=== PATIENT | male | born 1955 | race Caucasian/White ===

== ENCOUNTER 2023-05-05 14:50 | Emergency (ER) | payer SELFPAY ==
[~2023-05-05] VITALS: Ht 180.3 cm; Wt 85.0 kg
[2023-05-05 14:50] VITALS: BP 84/58; PULSE 78; RESP 16; O2SAT 96
[~2023-05-05 14:50] MED LIST: AMLO1TAB22 PO; ASPI1TAB20 PO; ATOR40TA52 PO; LISI10TA34 PO; LISI2.5T47 PO; LISI20TA56 PO
== END 2023-05-05 14:58 | disposition left against medical advice (07) ==
LOC: ER 14:50 → EDBD 14:50 → ER 14:52
DX: R55 Syncope and collapse (principal); Z53.21 Procedure and treatment not carried out due to patient leaving prior to being seen by health care provider
CPT/HCPCS: 93005

== ENCOUNTER 2023-05-05 16:27 | Inpatient (IN) | payer OTHER, MEDICAID ==
[~2023-05-05] VITALS: Ht 182.9 cm; Wt 74.3 kg
[2023-05-05] MEDS ORDERED: SODIUM CHLORIDE 0.9% 2,000 ML IV ONE (17:15)
[2023-05-05 18:09] LABS: Basophils # (auto) 0 10 ^3/uL (0-0.2); Basophils % (auto) 0.4 % (0.0-2.0); Eosinophils # (auto) 0 10 ^3/uL (0-0.8); Eosinophils % (auto) 0.4 % (0.0-7.0); Hematocrit 33.6 % (41.0-53.0); Hemoglobin 11.3 g/dL (13.5-17.5); Lymphocytes # (auto) 0.6 10 ^3/uL (0.4-5.4); Lymphocytes % (auto) 5.7 % (10.0-50.0); Mean Corpuscular Hemoglobin 38.2 pg (28.0-32.0); Mean Corpuscular Hgb Conc. 33.8 g/dL (32.0-36.0); Mean Corpuscular Volume 113.1 fL (80.0-100.0); Monocytes # (auto) 0.6 10 ^3/uL (0-1.3); Monocytes % (auto) 5.7 % (0.0-12.0); Neutrophils # (auto) 9.4 10 ^3/uL (1.6-8.6); Neutrophils % (auto) 87.8 % (37.0-80.0); Nucleated Red Blood Cells % 0.1 %; Red Blood Cells 2.97 10^6/uL (4.5-5.90); White Blood Cell 10.7 10^3/uL (4.4-10.8)
[2023-05-05 18:13] LABS: Red Cell Distribution Width 20.8 % (11.8-14.3)
[2023-05-05 18:17] LABS: Alanine Aminotransferase 17 U/L (7-40); Alkaline Phosphatase 75 U/L (46-116); Anion Gap 12 (5-15); Aspartate Aminotransferase 21 U/L (13-40); BUN/Creatinine Ratio 12.2 (10.0-20.0); Bilirubin, Total 0.3 mg/dL (0.2-1.0); Blood Urea Nitrogen 17 mg/dL (9-23); Calcium 9.3 mg/dL (8.5-10.1); Carbon Dioxide 21 mmol/L (20-30); Chloride 103 mmol/L (98-107); Glucose 156 mg/dL (74-106); Potassium 4.3 mmol/L (3.5-5.1); Sodium 136 mmol/L (136-145)
[2023-05-05 18:18] LABS: Total Protein 6.2 g/dL (5.7-8.2)
[2023-05-05 18:25] LABS: Lactic Acid w/Reflex 3.9 mmol/L (0.4-2.0)
[2023-05-05 18:26] LABS: INR 1.04 (0.9-1.15); Partial Thromboplastin Time 21.7 SEC (24.5-34.5); Prothrombin Time 10.9 sec (9.3-11.8)
[2023-05-05 18:45] VITALS: PULSE 94; RESP 18; O2SAT 100
[2023-05-05 18:57] LABS: Magnesium 1.9 mg/dL (1.6-2.6)
[2023-05-05] MEDS ORDERED: SODIUM CHLORIDE 0.9% 1,000 ML IV ONE ×2 (19:15→23:15)
[2023-05-05 20:10] VITALS: PULSE 90; RESP 15; O2SAT 90
[2023-05-05] MEDS ORDERED: PIPERACILLIN-TAZOB 3.375GM 100 ML IV ONE (20:30)
[2023-05-05] MEDS ORDERED: NICOTINE 7MG/24HR TOPICAL PATCH TD ONE (21:45)
[2023-05-05] MEDS ORDERED: ACETAMINOPHEN 325 MG TAB PO PRN (23:15)
[2023-05-05] MEDS ORDERED: ONDANSETRON HCL 4 MG/2 ML VIAL IV PRN (23:15)
[2023-05-06] VITALS (7 sets, daily range): BP systolic 88–130; BP diastolic 53–72; PULSE 60–99; RESP 15–18; TEMP 97.5–98.4; O2SAT 95–99
[2023-05-06 01:17] LABS: Urine Bacteria NONE SEEN /hpf (None Seen); Urine Blood Negative /uL (Negative); Urine Clarity Clear (Clear); Urine Color Yellow (Yellow); Urine Protein, UAD Negative (Negative); Urine Specific Gravity 1.012 (1.001-1.035); Urine WBC 3 /hpf (0 - 3)
[2023-05-06] MEDS ORDERED: POLYETHYLENE GLYCOL 17 GM PWDR PO PRN (04:45)
[2023-05-06 05:40] LABS: Basophils # (auto) 0 10 ^3/uL (0-0.2); Basophils % (auto) 0.3 % (0.0-2.0); Eosinophils # (auto) 0.1 10 ^3/uL (0-0.8); Hemoglobin 8.8 g/dL (13.5-17.5); Lymphocytes # (auto) 0.5 10 ^3/uL (0.4-5.4); Monocytes # (auto) 0.7 10 ^3/uL (0-1.3)
[2023-05-06 05:41] LABS: Anion Gap 3 (5-15); Carbon Dioxide 24 mmol/L (20-30); Chloride 111 mmol/L (98-107); Sodium 138 mmol/L (136-145)
[2023-05-06 05:42] LABS: Calcium 7.9 mg/dL (8.7-10.4); Hematocrit 25.1 % (41.0-53.0); Lymphocytes % (auto) 5.6 % (10.0-50.0); Mean Corpuscular Volume 111.3 fL (80.0-100.0); Monocytes % (auto) 8.9 % (0.0-12.0); Neutrophils # (auto) 6.9 10 ^3/uL (1.6-8.6); Neutrophils % (auto) 84.2 % (37.0-80.0); Red Blood Cells 2.25 10^6/uL (4.5-5.90); White Blood Cell 8.2 10^3/uL (4.4-10.8)
[2023-05-06 05:47] LABS: BUN/Creatinine Ratio 10.5 (10.0-20.0); Blood Urea Nitrogen 11 mg/dL (9-23); Glucose 84 mg/dL (74-106)
[2023-05-06 06:08] LABS: Red Cell Distribution Width 20.5 % (11.8-14.3)
[2023-05-06] MEDS: SENNA 8.6 MG TAB PO SCH ×2 (09:55→22:08)
[2023-05-06] MEDS ORDERED: FAMOTIDINE 20 MG TAB PO SCH (10:00)
[2023-05-06] MEDS ORDERED: IOHEXOL 350 MG/ML 100ML IJ ONE (12:29)
[2023-05-06] MEDS: SODIUM CHLORIDE 0.9% 1,000 ML IV SCH (12:30)
[2023-05-06 13:06] LABS: % Iron Saturation 14.8 % (20-55)
[2023-05-06] MEDS: FERROUS SULFATE 300 MG/5 ML ORAL LIQ PO SCH (17:14)
[2023-05-06] MEDS: MIDODRINE HCL 10 MG TAB PO SCH (17:15)
[2023-05-07] VITALS (12 sets, daily range): BP systolic 94–137; BP diastolic 51–72; PULSE 59–94; RESP 16–18; TEMP 97.9–98.7; O2SAT 93–98
[2023-05-07] MEDS: SODIUM CHLORIDE 0.9% 1,000 ML IV SCH ×2 (02:30→08:30)
[2023-05-07 06:18] LABS: Chloride 110 mmol/L (98-107); Sodium 138 mmol/L (136-145)
[2023-05-07 06:19] LABS: Anion Gap 5 (5-15); Carbon Dioxide 23 mmol/L (20-30)
[2023-05-07 06:24] LABS: BUN/Creatinine Ratio 8.7 (10.0-20.0); Blood Urea Nitrogen 8 mg/dL (9-23); Glucose 75 mg/dL (74-106)
[2023-05-07] MEDS: MIDODRINE HCL 10 MG TAB PO SCH ×2 (06:28→14:21)
[2023-05-07 06:56] LABS: Basophils # (auto) 0 10 ^3/uL (0-0.2); Eosinophils # (auto) 0.2 10 ^3/uL (0-0.8); Hemoglobin 8.3 g/dL (13.5-17.5); Lymphocytes # (auto) 0.4 10 ^3/uL (0.4-5.4); Mean Corpuscular Hgb Conc. 34.5 g/dL (32.0-36.0); Mean Corpuscular Volume 112.1 fL (80.0-100.0); Monocytes # (auto) 0.5 10 ^3/uL (0-1.3); Neutrophils # (auto) 4.1 10 ^3/uL (1.6-8.6); White Blood Cell 5.2 10^3/uL (4.4-10.8)
[2023-05-07 06:59] LABS: Basophils % (auto) 0.7 % (0.0-2.0); Eosinophils % (auto) 3.7 % (0.0-7.0); Lymphocytes % (auto) 7.8 % (10.0-50.0); Mean Corpuscular Hemoglobin 38.7 pg (28.0-32.0); Monocytes % (auto) 9.9 % (0.0-12.0); Neutrophils % (auto) 77.9 % (37.0-80.0); Nucleated Red Blood Cells % 0.2 %; Red Blood Cells 2.15 10^6/uL (4.5-5.90); Red Cell Distribution Width 20.5 % (11.8-14.3)
[2023-05-07] MEDS: FERROUS SULFATE 300 MG/5 ML ORAL LIQ PO SCH (09:18)
[2023-05-07] MEDS: SENNA 8.6 MG TAB PO SCH (09:20)
[2023-05-07] MEDS ORDERED: NICOTINE 14 MG/24HR TOPICAL PATCH TD SCH (10:00)
[2023-05-07] MEDS ORDERED: MID10T PO (16:33)
== END 2023-05-07 18:10 | disposition home or self-care (01) | DRG 312 ==
LOC: ER 16:27 → TELE 23:16 → TELE-EAST 05-06 07:59
PROVIDERS: ADMIT Hospitalist; ATTEND Hospitalist
DX: I95.1 Orthostatic hypotension (principal); E86.0 Dehydration; I10 Essential (primary) hypertension; F17.210 Nicotine dependence, cigarettes, uncomplicated; Z86.73 Personal history of transient ischemic attack (TIA), and cerebral infarction without residual deficits; Z90.49 Acquired absence of other specified parts of digestive tract
CPT/HCPCS: 36415; 70450; 71045; 71275; 80048; 80053; 81001; 82270; 83540; 83550; 83605; 83735; 84443; 84484; 85025; 85610; 85730; 86850; 86900; 86901; 87040; 93005; 93306; 99291; G0378; J2543

== ENCOUNTER 2025-03-03 08:49 | Inpatient (IN) | payer MEDICARE, MEDICAID ==
[~2025-03-03] VITALS: Ht 182.9 cm; Wt 79.5 kg
[~2025-03-03 08:49] MED LIST changes: -LISI10TA34 PO; -LISI2.5T47 PO; +MID10T PO; +PRIM50TA5 PO
--- NOTE | 2025-03-03 09:22 | ECG ---
[facility] Test Date: 2025-03-03 Test Time: 09:05:59 Pat Name: SWETA PAZ Department: [facility] ED Patient ID: [id number] Room: 0281T Gender: M Auto Damage Estimator: ROBIN : 1955 Requested By: JASMIN BECERRA Order Number: [id number] Reading MD: Markus Allen Measurements Intervals [place] Rate: 75 P: 78 [place]: 202 QRS: 42 QRSD: 110 T: 66 QT: 399 QTc: 446 Interpretive Statements Sinus rhythm Anteroseptal infarct, age indeterminate Electronically Signed On 03-04-2025 15:14:49 PDT by Markus Allen Please click the below link to view image of tracing.
[2025-03-03 09:38] VITALS: PULSE 64; RESP 16; O2SAT 96
[2025-03-03] MEDS: SODIUM CHLORIDE 0.9% 1,000 ML IV ONE (09:38)
--- NOTE | 2025-03-03 09:42 | ED.PDOC ---
Altered Mental Status HPI Comments This is a 69 year-old male, with a PMHx of Hypotension, who presents to the ED via EMS with a chief complaint of syncopal episode today. Patient reports last syncopal episode was 05/05/23 after undergoing chemotherapy and radiation for Lymphoid Cancer. Patient states he has not been undergoing chemo or radiation as he no longer has cancer. Patient has no further complaints at this time and otherwise denies further associated symptoms of dizziness, headache, blurred vision, N/V/D, fever, or chills. Chief Complaint: Syncope Time Seen by MD: 09:19 Primary Care Provider: CLAYTON Reviewed Notes: Medications, Allergies Allergies: Coded Allergies: NO KNOWN ALLERGIES (Unverified , 04/23/15) Home Meds Active Scripts Midodrine HCl (Midodrine HCl) 10 Mg Tab, 10 MG PO TID, #120 TAB Prov:ANUJ ARMSTRONG MD 05/07/23 Reported Medications Amlodipine Besylate (Amlodipine Besylate) 5 Mg Tab, 1 TAB PO DAILY, #30 TAB 5 Refills 09/28/15 Atorvastatin Calcium (ATORVASTATIN CALCIUM) 40 Mg Tab, 1 TAB PO QPM, #90 TAB 3 Refills 09/28/15 Aspirin (Aspir-81) 81 Mg Tab, 1 TAB PO DAILY, #30 TAB 5 Refills 09/28/15 Information Source: Patient Mode of Arrival: EMS Severity: Moderate Associated Signs and Symptoms: Other (syncope ) Past Medical History PAST MEDICAL HISTORY: CVA, Gallstones, High Lipids, HTN Past Medical History (Other): Lymphoid Cancer Surgical History: Cholecystectomy Family History Family History: Unobtainable Social History Smoker: Cigarettes Alcohol: Occasionally Drugs: Denies Drug Use Lives In: Home Constitutional: denies: chills, diaphoresis, fatigue, fever, malaise, sweats, weakness, others EENTM: denies: blurred vision, double vision, ear bleeding, ear discharge, ear drainage, ear pain, ear ringing, eye pain, eye redness, hearing loss, mouth pain, mouth swelling, nasal discharge, nose bleeding, nose congestion, nose pain, photophobia, tearing, throat pain, throat swelling, voice changes, others Respiratory: denies: cough, hemoptysis, orthopnea, SOB at rest, shortness of breath, SOB with excertion, stridor, wheezing, others Cardiovascular: denies: chest pain, dizzy spells, diaphoresis, Dyspnea on exertion, edema, irregular heart beat, left arm pain, lightheadedness, palpitations, PND, syncope, others Gastrointestinal: denies: abdomen distended, abdominal pain, blood streaked bowels, constipated, diarrhea, dysphagia, difficulty swallowing, hematemesis, melena, nausea, poor appetite, poor fluid intake, rectal bleeding, rectal pain, vomiting, others Genitourinary: denies: burning, dysuria, flank pain, frequency, hematuria, incontinence, penile discharge, penile sore, pain, testicle pain, testicle swelling, urgency, others Neurological: reports: fainting; denies: dizziness, headache, left sided numbness, left sided weakness, numbness, paresthesia, pre-existing deficit, right sided numbness, right sided weakness, seizure, speech problems, tingling, tremors, weakness, others Musculoskeletal: denies: back pain, gout, joint pain, joint swelling, muscle pain, muscle stiffness, neck pain, others Integumetry: denies: bruises, change in color, change in hair/nails, dryness, laceration, lesions, lumps, rash, wounds, others Allergic/Immunocompromised: denies: Difficulty Healing, Frequent Infections, Hives, Itching, others Hematologic/Lymphatic: denies: anemia, blood clots, easy bleeding, easy bruising, swollen glands, others Endocrine: denies: excessive hunger, excessive sweating, excessive thirst, excessive urination, flushing, intolerance to cold, intolerance to heat, unexplained weight gain, unexplained weight loss, others Psychiatric: denies: anxiety, bipolar disorder, depression, hopeless, panic disorder, schizophrenia, sleepless, suicidal, others All Other Systems: Reviewed and Negative Physical Exam General Appearance: Moderate Distress HEENT: Normal ENT Inspection, Pharynx Normal, TMs Normal Neck: Full Range of Motion, Non-Tender, Normal, Normal Inspection Respiratory: Chest Non-Tender, Lungs Clear, No Accessory Muscle Use, No Respiratory Distress, Normal Breath Sounds Cardiovascular: No Edema, No JVD, No Murmur, No Gallop, Normal Peripheral Pulses, Regular Rate/Rhythm Breast Exam: Deferred Gastrointestinal: No Organomegaly, Non Tender, No Pulsatile Mass, Normal Bowel Sounds, Soft Genitalia: Deferred Pelvic: Deferred Rectal: Deferred Extremities: No calf tenderness, Normal capillary refill, Normal inspection, Normal range of motion, Non-tender, No pedal edema Musculoskeletal : Apperance: Normal Neurologic: Alert, trip motor operator II-XII nml as Tested, No Motor Deficits, Normal Affect, Normal Mood, No Sensory Deficits Cerebellar Function: NOT DONE Reflexes: NOT DONE Skin: Dry, Normal Color, Warm Peripheral Pulses: 3+ Radial (R), 3+ Radial (L) Lymphatic: No Adenopathy EKG EKG : Pulse Rate (adult): 75 [place]: Normal Cardiac Rhythm: NSR Block: None Hypertrophy: None ST: Normal Was a procedure done? Was a procedure done?: No Differential Diagnosis (ALOC) Differential Diagnosis: Dehydration, Hypoglycemia, Closed Head Injury X-Ray, Labs, Meds, VS Vital Signs Date Time Temp Pulse Resp B/P (MAP) Pulse Ox O2 Delivery O2 Flow Rate FiO2 03/03/25 09:42 75 03/03/25 09:38 64 16 96 Room Air* 0 21 03/03/25 09:17 97.5 79 26 105/56 (72) 90 97.5 03/03/25 09:14 82 03/03/25 09:05 75 03/03/25 08:58 98.2 82 18 120/89 96 98.2 Lab Test 03/03/25 09:30 03/03/25 09:05 Range/Units White Blood Count 5.7 4.4-10.8 10^3/uL Red Blood Count 3.90 L 4.5-5.90 10^6/uL Hemoglobin 13.1 L 13.5-17.5 g/dL Hematocrit 38.5 L 41.0-53.0 % Mean Corpuscular Volume 98.8 80.0-100.0 fL Mean Corpuscular Hemoglobin 33.6 H 28.0-32.0 pg Mean Corpuscular Hemoglobin Concent 34.0 32.0-36.0 g/dL Red Cell Distribution Width 13.7 11.8-14.3 % Platelet Count 182 140-450 10^3/uL Mean Platelet Volume 7.1 6.9-10.8 fL Neutrophils (%) (Auto) 76.1 37.0-80.0 % Lymphocytes (%) (Auto) 12.6 10.0-50.0 % Monocytes (%) (Auto) 9.7 0.0-12.0 % Eosinophils (%) (Auto) 1.2 0.0-7.0 % Basophils (%) (Auto) 0.4 0.0-2.0 % Neutrophils # (Auto) 4.3 1.6-8.6 10 ^3/uL Lymphocytes # (Auto) 0.7 0.4-5.4 10 ^3/uL Monocytes # (Auto) 0.6 0-1.3 10 ^3/uL Eosinophils # (Auto) 0.1 0-0.8 10 ^3/uL Basophils # (Auto) 0 0-0.2 10 ^3/uL Nucleated Red Blood Cells 0.0 % Sodium Level 134 L 136-145 mmol/L Potassium Level 3.6 3.5-5.1 mmol/L Chloride Level 103 98-107 mmol/L Carbon Dioxide Level 25 20-31 mmol/L Anion Gap 6 5-15 Blood Urea Nitrogen 9 9-23 mg/dL Creatinine 1.11 0.700-1.30 mg/dL Glomerular Filtration Rate Calc 73 >90 mL/min BUN/Creatinine Ratio 8.1 L 10.0-20.0 Serum Glucose 111 H 74-106 mg/dL Calcium Level 7.9 L 8.7-10.4 mg/dL Troponin I High Sensitivity 7 </=54 ng/L POC Glucose 124 H 70-106 mg/dl Current Medications Medications (Trade) Dose Ordered Sig/Camilo Route Start Time Stop Time Status Last Admin Sodium Chloride 1,000 ml @ 1,000 mls/hr Q1H ONCE IV 03/03/25 09:30 03/03/25 10:29 DC 03/03/25 09:38 [place] [id number] Ph: [phone] DIAGNOSTIC IMAGING Diagnostic Imaging Report : [id number] Signed PATIENT: SWETA PAZ ACCT: [id number] UNIT: [id number] : 1955 LOC: ER ROOM / BED: / AGE / SEX: 69 / M ADM STATUS: REG ER SERVICE 4 ORDERING PHYSICIAN: JASMIN BECERRA MD PROCEDURE(s): HWOCT - HEAD WITHOUT CONTRAST REASON: syncope ORDER NUMBER(s): [id number], ACCESSION NUMBER(s): [id number] EXAM: CT HEAD WITHOUT CONTRAST INDICATION: Syncope TECHNIQUE: CT of the head without intravenous contrast. Coronal and sagittal reformatted images are submitted. Radiation Dose : 1. Head: CT Dose: CTDI volume is 62.8 mGy. Dose-length product is 1129.8 mGy*cm The dose indicators for CT are the volume Computed Tomography (CT) Dose Index (CTDIvol) and the Dose Length Product (DLP), and are measured in units of mGy and mGy-cm, respectively. These indicators are not patient dose, but values generated from the CT scanner acquisition factors. The report includes radiation exposure data for exposures received during this examination. All CT scans at this medical facility are performed using dose modulation techniques as appropriate to a performed exam including the following: Automated exposure control was utilized; adjustment of the MA and/or KV according to patient size; and use of iterative reconstruction technique. COMPARISON: CT HEAD WITHOUT CONTRAST on DOS: 05/05/23 FINDINGS: There is no evidence of acute intracranial hemorrhage, extra-axial collection, mass effect, midline shift, herniation or hydrocephalus. The ventricles, sulci and cisterns are age appropriate. The monsalve-white differentiation is intact. There is mucosal thickening in the maxillary sinuses. The mastoid air cells are clear. No depressed calvarial fracture. The surrounding soft tissues are unremarkable. IMPRESSION: 1. No evidence of acute intracranial abnormality. Patient alert. Possibly had syncope. CT of the head reviewed does not show any acute changes. Establish intravenous access. Was given fluids pain Has a had chemo radiation therapy. Was told to follow up with his primary care physician. Was told to come back if there is any problem. Images Reviewed?: Images reviewed and evaluated by me Time of 1ST Reevaluation: 10:27 Reevaluation 1ST: Unchanged Patient Education/Counseling: Diagnosis, Treatment Family Education/Counseling: No Family Present SEPSIS Sepsis Screen Date sepsis recognized/suspect: Mar 03, 2025 Time Sepsis recognized/suspect: 908 Recent Procedure: No On Antibiotic Therapy: No Respiratory Rate >20: No Heart Rate >90: No Temp<36 C (96.8 F) or >38.3 C: No SBP <90 or MAP <65 mmHG: No New Acute Mental Status Change: No Is the patient on CPAP, BIPAP,: No Physician Orders Chrome Plater Helper (03/03/25 ) Head Without Contrast (03/03/25 09:25) Vital Signs Date Time Temp Pulse Resp B/P (MAP) Pulse Ox O2 Delivery O2 Flow Rate FiO2 03/03/25 09:42 75 03/03/25 09:38 64 16 96 Room Air* 0 21 03/03/25 09:17 97.5 79 26 105/56 (72) 90 97.5 03/03/25 09:14 82 03/03/25 09:05 75 03/03/25 08:58 98.2 82 18 120/89 96 98.2 Laboratory Tests Test 03/03/25 09:30 White Blood Count 5.7 10^3/uL (4.4-10.8) Medications Medications Dose Ordered Sig/Camilo Route Start Time Stop Time Status Last Admin Dose Admin Sodium Chloride 1,000 ml @ 1,000 mls/hr Q1H ONCE IV 03/03/25 09:30 03/03/25 10:29 DC 03/03/25 09:38 Departure 1 Departure Time of Disposition: 11:00 Impression: Primary Impression: Syncope and collapse Additional Impression: Premature ventricular contraction Disposition: ADMITTED INPATIENT Admit to: Med Surg Condition: Guarded Critical Care Note Critical Care Time?: Yes (45 min-critical care time only) Stability Stability form required: No Heart Score Heart Score: Heart Score Response (Comments) Value History Slightly Suspicious 0 EKG Normal 0 Age >65 2 Risk Factors 1 or 2 risk factors 1 Troponin N/A 0 Total 3 I personally scribed for JASMIN BECERRA MD ([email or web address]) on 03/03/25 at 09:42. Electronically submitted by Elo Hutson ([employer]). I personally scribed for JASMIN BECERRA MD ([email or web address]) on 03/03/25 at 09:43. Electronically submitted by Elo Hutson ([employer]). I personally scribed for JASMIN BECERRA MD ([email or web address]) on 03/03/25 at 10:41. Electronically submitted by Elo Hutson ([employer]). JASMIN BECERRA MD Mar 03, 2025 09:42
[2025-03-03 09:52] LABS: Hematocrit 38.5 % (41.0-53.0); Hemoglobin 13.1 g/dL (13.5-17.5); Mean Corpuscular Hemoglobin 33.6 pg (28.0-32.0); Mean Corpuscular Volume 98.8 fL (80.0-100.0); Nucleated Red Blood Cells % 0.0 %
[2025-03-03 10:01] LABS: Chloride 103 mmol/L (98-107); Potassium 3.6 mmol/L (3.5-5.1)
[2025-03-03 10:02] LABS: Anion Gap 6 (5-15); Carbon Dioxide 25 mmol/L (20-31)
[2025-03-03 10:05] LABS: Calcium 7.9 mg/dL (8.7-10.4); Sodium 134 mmol/L (136-145)
[2025-03-03 10:07] LABS: BUN/Creatinine Ratio 8.1 (10.0-20.0); Blood Urea Nitrogen 9 mg/dL (9-23); Glucose 111 mg/dL (74-106)
--- NOTE | 2025-03-03 10:09 | DVH ---
EXAM: CT HEAD WITHOUT CONTRAST INDICATION: Syncope TECHNIQUE: CT of the head without intravenous contrast. Coronal and sagittal reformatted images are s ubmitted. Radiation Dose : 1. Head: CT Dose: CTDI volume is 62.8 mGy. Dose-length product is 1129.8 mGy*cm The dose indicators for CT are the volume Computed Tomography (CT) Dose Index (CTDIvol) and the Dose Length Product (DLP), and are measured in units of mGy and mGy-cm, respectively. These indicators are not patient dose, but values generated from the CT scanner acquisition factors. The report includes radiation exposure data for exposures received during this examination. All CT scans at this medical facility are performed using dose modulation techniques as appropriate to a performed exam including the following: Automated exposure control was utilized; adjustment of the MA and/or KV according to patient size; and use of iterative reconstruction technique. COMPARISON: CT HEAD WITHOUT CONTRAST on DOS: 05/05/23 FINDINGS: There is no evidence of acute intracranial hemorrhage, extra-axial collection, mass effect, midline s hift, herniation or hydrocephalus. The ventricles, sulci and cisterns are age appropriate. The monsalve-white differentiation is intact. There is mucosal thickening in the maxillary sinuses. The mastoid air cells are clear. No depressed calvarial fracture. The surrounding soft tissues are unremarkable. IMPRESSION: 1. No evidence of acute intracranial abnormality.
[2025-03-03 13:00] VITALS: PULSE 82; RESP 21; O2SAT 95
[2025-03-03] MEDS ORDERED: HYDROcodone-ACET 5/325MG TAB PO PRN (13:00)
[2025-03-03] MEDS ORDERED: NITROGLYCERIN 0.4 MG SL TAB SL PRN (13:00)
[2025-03-03] MEDS ORDERED: ONDANSETRON HCL 4 MG/2 ML VIAL IV PRN (13:00)
[2025-03-03] MEDS: SODIUM CHLORIDE 0.9% 1,000 ML IV SCH (13:00)
[2025-03-03] MEDS ORDERED: MORPHINE SULFATE INJ 2 MG/ml SYRG IV PRN ×2 (13:00)
[2025-03-03] MEDS ORDERED: DOCUSATE SOD 100 MG CAP PO PRN (13:00)
[2025-03-03] MEDS ORDERED: ACETAMINOPHEN 325 MG TAB PO PRN (13:00)
--- NOTE | 2025-03-03 13:04 | DVHHP2 ---
History of Present Illness Reason for Visit: Fainting spell History of Present Illness 69-year-old male with a known history of hypertension, dyslipidemia, previous history of CVA without any residual deficit, history of lymphatic cancer in the neck status post chemotherapy as well as radiation therapy currently on admission presented in the hospital. The fainting spell. Patient also complaining of some lightheadedness dizziness before the episode. Denies any chest pain denies any stroke-like symptoms. Denies any fevers chills shortness of breath cough or phlegm. Cardiovascular: HTN, hyperipidemia METAL FABRICATOR: CVA Heme/Onc: Cancer Past Surgical History: None Family History: None Smoke: No ALCOHOL: none Review of Systems Review of Systems Twelve review of system were negative aside mentioned above. Allergies: Coded Allergies: NO KNOWN ALLERGIES (Unverified , 04/23/15) Exam Vital Signs Vital Signs Date Time Temp Pulse Resp B/P (MAP) Pulse Ox O2 Delivery O2 Flow Rate FiO2 03/03/25 12:00 80 03/03/25 11:00 20 130/69 (89) 89 03/03/25 09:38 Room Air* 0 21 03/03/25 09:17 97.5 97.5 Exam HEENT pupils are reactive Neck is supple CV is S1-S2 regular rate and rhythm Respiratory bilateral clear GI positive bowel sound Extremity no edema METAL FABRICATOR no motor deficits Labs/Xrays Labs Test 03/03/25 09:30 03/03/25 09:05 Range/Units White Blood Count 5.7 4.4-10.8 10^3/uL Red Blood Count 3.90 L 4.5-5.90 10^6/uL Hemoglobin 13.1 L 13.5-17.5 g/dL Hematocrit 38.5 L 41.0-53.0 % Mean Corpuscular Volume 98.8 80.0-100.0 fL Mean Corpuscular Hemoglobin 33.6 H 28.0-32.0 pg Mean Corpuscular Hemoglobin Concent 34.0 32.0-36.0 g/dL Red Cell Distribution Width 13.7 11.8-14.3 % Platelet Count 182 140-450 10^3/uL Mean Platelet Volume 7.1 6.9-10.8 fL Neutrophils (%) (Auto) 76.1 37.0-80.0 % Lymphocytes (%) (Auto) 12.6 10.0-50.0 % Monocytes (%) (Auto) 9.7 0.0-12.0 % Eosinophils (%) (Auto) 1.2 0.0-7.0 % Basophils (%) (Auto) 0.4 0.0-2.0 % Neutrophils # (Auto) 4.3 1.6-8.6 10 ^3/uL Lymphocytes # (Auto) 0.7 0.4-5.4 10 ^3/uL Monocytes # (Auto) 0.6 0-1.3 10 ^3/uL Eosinophils # (Auto) 0.1 0-0.8 10 ^3/uL Basophils # (Auto) 0 0-0.2 10 ^3/uL Nucleated Red Blood Cells 0.0 % Sodium Level 134 L 136-145 mmol/L Potassium Level 3.6 3.5-5.1 mmol/L Chloride Level 103 98-107 mmol/L Carbon Dioxide Level 25 20-31 mmol/L Anion Gap 6 5-15 Blood Urea Nitrogen 9 9-23 mg/dL Creatinine 1.11 0.700-1.30 mg/dL Glomerular Filtration Rate Calc 73 >90 mL/min BUN/Creatinine Ratio 8.1 L 10.0-20.0 Serum Glucose 111 H 74-106 mg/dL Calcium Level 7.9 L 8.7-10.4 mg/dL Troponin I High Sensitivity 7 </=54 ng/L POC Glucose 124 H 70-106 mg/dl SEPSIS Sepsis Screen Date sepsis recognized/suspect: Mar 03, 2025 Time Sepsis recognized/suspect: 1102 Recent Procedure: No On Antibiotic Therapy: No Respiratory Rate >20: No Heart Rate >90: No Temp<36 C (96.8 F) or >38.3 C: No SBP <90 or MAP <65 mmHG: No New Acute Mental Status Change: No Is the patient on CPAP, BIPAP,: No Physician Orders Wardrobe Specialty Worker (03/03/25 ) Head Without Contrast (03/03/25 09:25) Vital Signs Date Time Temp Pulse Resp B/P (MAP) Pulse Ox O2 Delivery O2 Flow Rate FiO2 03/03/25 12:00 80 03/03/25 11:00 79 20 130/69 (89) 89 03/03/25 09:42 75 03/03/25 09:38 64 16 96 Room Air* 0 21 03/03/25 09:17 97.5 79 26 105/56 (72) 90 97.5 03/03/25 09:14 82 03/03/25 09:05 75 03/03/25 08:58 98.2 82 18 120/89 96 98.2 Laboratory Tests Test 03/03/25 09:30 White Blood Count 5.7 10^3/uL (4.4-10.8) Medications Medications Dose Ordered Sig/Camilo Route Start Time Stop Time Status Last Admin Dose Admin Sodium Chloride 1,000 ml @ 1,000 mls/hr Q1H ONCE IV 03/03/25 09:30 03/03/25 10:29 DC 03/03/25 09:38 1,000 MLS/HR Assessment/Plan Assessment/Plan 69-year-old male with a known history of hypertension, dyslipidemia, previous history of CVA without any residual deficit, 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 Syncope rule out cardiac arrhythmia 2. Hypertension 3. Dyslipidemia 4. History of CVA without any neurological deficit 5. Lymphadenopathy cancer status post chemotherapy and radiation corneal admission -W admission, orthostatic vitals check, IV hydration, 2D echo cardiology consultation. Plan discussed with: Patient Date of Service: Mar 03, 2025 Billing Provider: LEONIDES AGUILAR MD Common Visit Codes: NOT BILLABLE LEONIDES AGUILAR MD Mar 03, 2025 13:04
--- NOTE | 2025-03-03 15:02 | DVH ---
Carotid Duplex Clinical History: syncope Comparison: MR NECK SOFT TISSUE WO/W on DOS: 07/09/24, US NECK, SOFT TISSUES on DOS: 06/27/23 Technique: Duplex doppler evaluation of the extracranial carotid and vertebral arteries including color doppler and spectral/pulsed waveform analysis was performed. Findings: RIGHT SIDE: The peak systolic velocities are 74 cm/s in the CCA, 105 cm/s in the ICA. The ICA/CCA ratio is 1.4. The external carotid artery is patent with peak systolic velocity of 120 cm/s proximally. There is appropriate antegrade flow in the right vertebral artery. LEFT SIDE: The peak systolic velocities are 78 cm/s in the CCA, 132 cm/s in the ICA. The ICA/CCA ratio is 1.7. The external carotid artery is patent with peak systolic velocity of 127 cm/s proximally. There is appropriate antegrade flow in the left vertebral artery. IMPRESSION: 1. No hemodynamically significant stenosis noted in the right carotid system. 2. Approximately 50-69 % stenosis of the proximal left internal carotid artery. Reference: Radiology 2003; 229:340-346 Normal ICA PSV is <125 cm/sec and no plaque or intimal thickening is visible sonographically addition al criteria include ICA/CCA PSV ratio <2.0 and ICA EDV <40 cm/sec <50% ICA stenosis ICA PSV is <125 cm/sec and plaque or intimal thickening is visible sonographically additional criteria include ICA/CCA PSV ratio <2.0 and ICA EDV <40 cm/sec 50-69% ICA stenosis ICA PSV is 125-230 cm/sec and plaque is visible sonographically additional criter ia include ICA/CCA PSV ratio of 2.0-4.0 and ICA EDV of 40-100 cm/sec 70% ICA stenosis but less than near occlusion ICA PSV is >230 cm/sec and visible plaque and luminal n arrowing are seen at monsalve-scale and color doppler ultrasound (the higher the doppler parameters lie a holden the threshold of 230 cm/sec, the greater the likelihood of severe disease) additional criteria i nclude ICA/CCA PSV ratio >4 and ICA EDV >100 cm/sec
[2025-03-03 16:05] VITALS: PULSE 104; RESP 18; O2SAT 95
[2025-03-03 16:17] LABS: Urine Protein, UAD TRACE (Negative)
[2025-03-03 17:00] VITALS: BP_SYST 108; BP_SYST 116; BP_SYST 152; BP_DIAS 68; BP_DIAS 71; BP_DIAS 78; PULSE 104; PULSE 78; PULSE 89; RESP 18; TEMP 98.7; O2SAT 95
[2025-03-03 20:00] VITALS: PULSE 68; O2SAT 98
[2025-03-03 21:00] VITALS: BP 148/82; PULSE 16; PULSE 78; TEMP 98.5; O2SAT 98
[2025-03-04] VITALS (8 sets, daily range): BP systolic 106–169; BP diastolic 57–84; PULSE 17–79; RESP 16–17; TEMP 97.7–98.6; O2SAT 96–99
--- NOTE | 2025-03-04 07:56 | DVHSR ---
APPROVED REPORT EXAM: Two-dimensional and M-mode echocardiogram with Doppler and color Doppler. Blood Pressure: 130/69 mmHg INDICATION Syncope RISK FACTORS Height: 6'0", Weight: 189 DIMENSIONS LVDd4.3 (3.8-5.7cm)LA (2D)4.0 (1.9-4.0cm)Aortic Root3.8 (2.0-3.7cm) LVDs2.9 (2.5-4.0cm)LA (MM) (1.9-4.0cm)Aortic Cusp Exc1.4 (1.5-2.0cm) EF (%) 55.0 (55-70%)Rt. Atrium4.0 (1.9-4.0cm)Asc. Aorta cm IVSd1.1 (0.7-1.1cm)RV (D) (1.8-2.4cm) PWd1.0 (0.7-1.1cm) Mitral Valve MitralMitral Stenosis E wave0.59m/sMV Mean GR.mmHg A wave0.83m/sMV Peak GR.mmHg E/A ratio0.72D MVAcm2 DECEL [id number] 1/2 Timems Aortic Valve Aortic ValveAortic Stenosis V10.78m/Dannielle Mean GR.3mmHg V21.24m/Dannielle Peak GR.6mmHg LVOT Diameter2.3 (1.8-2.4cm)Doppler AVA2.61cm2 Pulmonic Valve V21.06m/s Tricuspid Valve TR Velocity2.79m/s [id number] Other Information Technically limited study due to body habitus. Conclusion lvef 60% normal rv function no severe valve abnormality noted trivial pericardial effusion vs fat pad
[2025-03-04] MEDS: ENOXAPARIN SOD 40 MG/0.4 ML SYRINGE SC SCH (09:34)
[2025-03-04] MEDS: NICOTINE 14 MG/24HR TOPICAL PATCH TD ONE (13:24)
--- NOTE | 2025-03-04 16:08 | DVHPN2 ---
Subjective Patient denies any complaints, that has no tarry changes, cardiology consult is pending. Changes from previous H/P or p: No Changes Objective Vitals Vital Signs Date Time Temp Pulse Resp B/P (MAP) Pulse Ox O2 Delivery O2 Flow Rate FiO2 03/04/25 13:00 98.0 77 157/76 (103) 97 98.0 17 03/04/25 09:00 16 03/04/25 08:00 Room Air* 0 21 Intake/Output Intake and Output 03/04/25 07:00 Intake Total 2765 ml Output Total 1800 ml Balance 965 ml Intake Oral 1105 ml IV Total 1660 ml Output Urine Total 1800 ml # Voids 1 # Bowel Movements 2 Exam HEENT pupils are reactive Neck is supple CV is S1-S2 regular rate and rhythm Respiratory diminished breath sound bases GI positive bowel sound Extremity no edema FIELD TECH no motor deficit Medications Current Medications Medications Dose Ordered Sig/Camilo Route Start Time Stop Time Status Last Admin Dose Admin Sodium Chloride 1,000 ml @ 120 mls/hr Q8H20M IV 03/03/25 13:00 03/03/25 21:20 120 MLS/HR Acetaminophen/ Hydrocodone Bitart 1 tab Q4HP PRN PO 03/03/25 13:00 Ondansetron HCl 4 mg Q4HP PRN IV 03/03/25 13:00 Docusate Sodium 100 mg BIDPRN PRN PO 03/03/25 13:00 Enoxaparin Sodium 40 mg DAILY SC 03/04/25 10:00 03/04/25 09:34 40 MG Acetaminophen 650 mg Q6HP PRN PO 03/03/25 13:00 Morphine Sulfate 2 mg Q4HPRN PRN IV 03/03/25 13:00 Nitroglycerin 0.4 mg Q5MINP PRN SL 03/03/25 13:00 Morphine Sulfate 2 mg Q30M PRN IV 03/03/25 13:00 Nicotine 1 patch DAILY TD 03/05/25 10:00 Lisinopril 20 mg BID PO 03/04/25 22:00 UNV Amlodipine Besylate 5 mg DAILY PO 03/05/25 10:00 UNV Aspirin 81 mg DAILY PO 03/05/25 10:00 UNV Atorvastatin Calcium 40 mg HS PO 03/04/25 22:00 UNV Primidone 50 mg BID PO 03/04/25 22:00 UNV Laboratory Results Laboratory Tests 03/03/25 09:30 Urinalysis Test 03/03/25 16:07 Urine Color Yellow (Yellow) Urine Clarity Clear (Clear) Urine pH 6.0 (5.0-9.0) Urine Specific [place] 1.013 (1.001-1.035) Urine Protein Trace (Negative) H Urine Ketones Negative (Negative) Urine Blood Negative /uL (Negative) Urine Nitrite Negative (Negative) Urine Bilirubin Negative (Negative) Urine Urobilinogen Normal mg/dL (Negative) Urine Leukocyte Esterase Negative /uL (Negative) Urine RBC 2 /hpf (0 - 3) Urine Microscopic WBC 1 /HPF (0-3) Urine Squamous Epithelial Cells None seen /hpf (<5) Urine Bacteria None seen /hpf (None Seen) Urine Glucose Normal mg/dL (Normal) Microbiology Microbiology Date/Time Source Procedure Growth Status 03/03/25 17:31 Nose MRSA Screen - Final Complete Assessment/Plan Assessment/Plan 69-year-old male with a known history of hypertension, dyslipidemia, previous history of CVA without any residual deficit, 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 Syncope rule out cardiac arrhythmia 2. Hypertension 3. Dyslipidemia 4. History of CVA without any neurological deficit 5. 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 -outpatient Holter/event monitoring upon discharge. Plan discussed with: Patient My Orders Orders - LEONIDES AGUILAR MD Procedure Category Date Status Time Nicotine 14mg/24hr PHA 03/05/25 In Process (Nicoderm 14mg/24hr) 10:00 * Cardiology Consult CONS 03/04/25 Transmitted 13:41 Lisinopril Tablet PHA 03/04/25 Logged (Zestril Tablet) 22:00 Amlodipine Tablet PHA 03/05/25 Logged (Norvasc Tablet) 10:00 Aspirin Tablet PHA 03/05/25 Logged 10:00 Atorvastatin (Lipitor) PHA 03/04/25 Logged 22:00 Primidone Tablet PHA 03/04/25 Logged (Mysoline Tablet) 22:00 Date of Service: Mar 04, 2025 Billing Provider: LEONIDES AGUILAR MD Common Visit Codes: NOT BILLABLE LEONIDES AGUILAR MD Mar 04, 2025 16:08
[2025-03-04] MEDS: LISINOPRIL 20 MG TAB PO SCH (22:00)
[2025-03-04] MEDS: PRIMIDONE 50 MG TAB PO SCH (22:29)
[2025-03-04] MEDS: ATORVASTATIN 20 MG TAB PO SCH (22:29)
[2025-03-05] VITALS (7 sets, daily range): BP systolic 129–151; BP diastolic 77–85; PULSE 16–70; RESP 17–18; TEMP 36.6; O2SAT 96–98
--- NOTE | 2025-03-05 09:09 | DVHINCON2 ---
Date Seen: Mar 05, 2025 Referring Physician MD Jerel Reason for Consultation Syncope History of Present Illness This is a 69-year-old man who presented to the emergency room via EMS with a chief complaint of syncopal event on 03/03/2025. The patient reports he was having a bowel movement and upon standing up from the toilet he experienced a syncopal event. Denies unilateral weakness, head/oral trauma, urinary/fecal incontinence, or seizure-like activity. During hospital stay the patient had not developed any further episodes of syncope neither dizziness, visual disturbances, headache, chest pain, SOB, palpitations, or any other symptoms. He underwent a 12 lead electrocardiogram revealing a sinus rhythm with an associated first-degree atrioventricular block. Baseline troponin level is n egative. Significant medical history includes hypertension, dyslipidemia, history of cerebrovascular accident, or history of lymphatic cancer of the neck area status post radiation/chemotherapy in 2022. Past Medical History Past medical history reviewed. No other significant than mentioned above. Past Surgical History Cholecystectomy Family History: Cancer G8 MOTHER Grandmother Uncle (Prostate ) Family History Family history reviewed. Social History Denies the use of illicit drugs, alcohol, or tobacco use. Allergies: Coded Allergies: NO KNOWN ALLERGIES (Unverified , 04/23/15) Home Meds Reported Medications Lisinopril (Lisinopril) 20 Mg Tab, 1 TAB PO BID for 90 Days, #180 03/04/25 Primidone (MYSOLINE TABLET) 50 Mg Tb, 1 TAB PO BID for 90 Days, #180 03/04/25 Amlodipine Besylate (Amlodipine Besylate) 5 Mg Tab, 1 TAB PO DAILY for 90 Days, #90 09/28/15 Atorvastatin Calcium (ATORVASTATIN CALCIUM) 40 Mg Tab, 1 TAB PO QPM for 100 Days, #100 09/28/15 Aspirin (Aspir-81) 81 Mg Tab, 1 TAB PO DAILY for 90 Days, #90 09/28/15 Home Meds Home medications reviewed. Current Medications Current Medications Medications (Trade) Dose Ordered Sig/Camilo Route PRN Reason Start Time Stop Time Status Last Admin Enoxaparin Sodium (Lovenox) 40 mg DAILY SC 03/04/25 10:00 03/04/25 09:34 Nicotine (Nicoderm 14MG/ 24HR) 1 patch DAILY TD 03/05/25 10:00 Lisinopril (Zestril Tablet) 20 mg BID PO 03/04/25 22:00 03/04/25 22:00 Amlodipine Besylate (Norvasc Tablet) 5 mg DAILY PO 03/05/25 10:00 Aspirin 81 mg DAILY PO 03/05/25 10:00 Atorvastatin Calcium (Lipitor) 40 mg HS PO 03/04/25 22:00 03/04/25 22:29 Primidone (Mysoline Tablet) 50 mg BID PO 03/04/25 22:00 03/04/25 22:29 Review of Systems Constitutional: No symptom reported Ears, Nose, & Throat: No symptom reported Eyes: No symptom reported Neurological: Syncopal event Pulmonary/Respiratory: No symptom reported Cardiovascular: No symptom reported Gastrointestinal: No symptom reported Genitourinary: No symptom reported Musculoskeletal: No symptom reported Skin: No symptom reported Psychiatric: No symptom reported Endocrine: No symptom reported Hemotologic/Lymphatic: No symptom reported Vital Signs Vital Signs Date Time Temp Pulse Resp B/P (MAP) Pulse Ox O2 Delivery O2 Flow Rate FiO2 03/05/25 00:47 97.6 70 132/85 (101) 97 97.6 16 03/04/25 20:00 17 Room Air* 0 21 Physical Exam General Appearance: Cooperative. Well developed. Well nourished. In no acute distress Head Exam: Normal inspection Neck Exam: Normal inspection. Non-tender. Normal alignment Pulmonary/Respiratory: Chest non-tender. Clear bilateral breath sounds Cardiovascular/Chest: Regular rate and rhythm. S1, S2. Sinus rhythm with first-degree AV block. No murmurs. No JVD. Peripheral Pulses: 2+ Radial (R). 2+ Radial (L). 2+ Pedal (R). 2+ Pedal (L) Abdominal Exam: Normal bowel sounds. Soft. Nontender. No hepatospenomegaly. No masses Ankle Exam: Negative ankle edema Lower extremities: Negative lower extremity edema Neuro/Mental Status: A&O x4. Coherent Thoughts/Psych: Normal thought pattern. Appropriate mood and affect. Good judgement and insight Appearance: In no acute distress Skin Exam: Normal inspection. Normal color. Warm. Dry Labs/Diagnostic Data Labs Test 03/03/25 16:07 03/03/25 09:30 03/03/25 09:05 Range/Units Urine Color Yellow Yellow Urine Clarity Clear Clear Urine pH 6.0 5.0-9.0 Urine Specific [place] 1.013 1.001-1.035 Urine Protein Trace H Negative Urine Ketones Negative Negative Urine Blood Negative Negative /uL Urine Nitrite Negative Negative Urine Bilirubin Negative Negative Urine Urobilinogen Normal Negative mg/dL Urine Leukocyte Esterase Negative Negative /uL Urine RBC 2 0 - 3 /hpf Urine Microscopic WBC 1 0-3 /HPF Urine Squamous Epithelial Cells None seen <5 /hpf Urine Bacteria None seen None Seen /hpf Urine Glucose Normal Normal mg/dL White Blood Count 5.7 4.4-10.8 10^3/uL Red Blood Count 3.90 L 4.5-5.90 10^6/uL Hemoglobin 13.1 L 13.5-17.5 g/dL Hematocrit 38.5 L 41.0-53.0 % Mean Corpuscular Volume 98.8 80.0-100.0 fL Mean Corpuscular Hemoglobin 33.6 H 28.0-32.0 pg Mean Corpuscular Hemoglobin Concent 34.0 32.0-36.0 g/dL Red Cell Distribution Width 13.7 11.8-14.3 % Platelet Count 182 140-450 10^3/uL Mean Platelet Volume 7.1 6.9-10.8 fL Neutrophils (%) (Auto) 76.1 37.0-80.0 % Lymphocytes (%) (Auto) 12.6 10.0-50.0 % Monocytes (%) (Auto) 9.7 0.0-12.0 % Eosinophils (%) (Auto) 1.2 0.0-7.0 % Basophils (%) (Auto) 0.4 0.0-2.0 % Neutrophils # (Auto) 4.3 1.6-8.6 10 ^3/uL Lymphocytes # (Auto) 0.7 0.4-5.4 10 ^3/uL Monocytes # (Auto) 0.6 0-1.3 10 ^3/uL Eosinophils # (Auto) 0.1 0-0.8 10 ^3/uL Basophils # (Auto) 0 0-0.2 10 ^3/uL Nucleated Red Blood Cells 0.0 % Sodium Level 134 L 136-145 mmol/L Potassium Level 3.6 3.5-5.1 mmol/L Chloride Level 103 98-107 mmol/L Carbon Dioxide Level 25 20-31 mmol/L Anion Gap 6 5-15 Blood Urea Nitrogen 9 9-23 mg/dL Creatinine 1.11 0.700-1.30 mg/dL Glomerular Filtration Rate Calc 73 >90 mL/min BUN/Creatinine Ratio 8.1 L 10.0-20.0 Serum Glucose 111 H 74-106 mg/dL Calcium Level 7.9 L 8.7-10.4 mg/dL Troponin I High Sensitivity 7 </=54 ng/L POC Glucose 124 H 70-106 mg/dl Microbiology Date/Time Source Procedure Growth Status 03/03/25 17:31 Nose MRSA Screen - Final Complete Assessment Syncope and collapse, likely vasovagal event Rule out cardiac arrhythmias Left ICA stenosis, moderate degree Hypertension Dyslipidemia HX of CVA Hx of lymphatic CA Plan/Recommendation (Dr. Bear) * Transthoracic echocardiogram revealed LVEF 60% with normal RV function and no severe valve abnormalities noted * Twelve lead electrocardiogram revealed a sinus rhythm with a associated first- degree atrioventricular block * Bilateral carotid duplex revealed approximately 50-69% stenosis of the proximal left ICA and no hemodynamically significant stenosis of the right carotid system * Head CT is negative for acute process Plan: Highly suspected for vasovagal event. The patient can benefit from an outpatient event monitor to rule cardiac arrhythmias, nevertheless not suspected at this time. Continue single-antiplatelet therapy and lipid lowering agent given moderate stenosis of the left ICA. Follow-up with Cardiology within 1-2 weeks post-discharge. Consider neurology consultation given history of CVA. There is no further cardiac work-up indicated at this time. Kindly call if in need of further recommendations. Thank you for allowing us to participate in this patient's care. This medical document was created using an electronic medical record system with voice recognition software and computerized dictation system. Although this document has been carefully reviewed, there might still be some phonetic and typographical errors. Occasional wrong-word or ``sound-alike substitutions may have occurred due to the inherent limitations of voice recognition software. These areas are purely typographical due to imperfections of the software programs and do not reflect any compromise in the patient's medical care. Please read the chart carefully and recognize, using context, where these substitutions have occurred. Plan discussed with: Patient, Other NYHA Physical activity limitations: NA Date of Service: Mar 05, 2025 Billing Provider: LEE HUFFMAN Cardiology Common Codes: [id number] INP/OBS CARE (High) LEE HUFFMAN Mar 05, 2025 09:09
[2025-03-05] MEDS: NICOTINE 14 MG/24HR TOPICAL PATCH TD SCH (09:13)
--- NOTE | 2025-03-05 14:05 | DVHDS2 ---
Discharge Summary Date of Admission Mar 03, 2025 at 12:57 Date of Discharge: Mar 05, 2025 Labs/Diagnostic Data: Laboratory Results Test 03/03/25 16:07 03/03/25 09:30 03/03/25 09:05 Urine Color Yellow (Yellow) Urine Clarity Clear (Clear) Urine pH 6.0 (5.0-9.0) Urine Specific [place] 1.013 (1.001-1.035) Urine Protein Trace (Negative) Urine Ketones Negative (Negative) Urine Blood Negative /uL (Negative) Urine Nitrite Negative (Negative) Urine Bilirubin Negative (Negative) Urine Urobilinogen Normal mg/dL (Negative) Urine Leukocyte Esterase Negative /uL (Negative) Urine RBC 2 /hpf (0 - 3) Urine Microscopic WBC 1 /HPF (0-3) Urine Squamous Epithelial Cells None seen /hpf (<5) Urine Bacteria None seen /hpf (None Seen) Urine Glucose Normal mg/dL (Normal) White Blood Count 5.7 10^3/uL (4.4-10.8) Red Blood Count 3.90 10^6/uL (4.5-5.90) Hemoglobin 13.1 g/dL (13.5-17.5) Hematocrit 38.5 % (41.0-53.0) Mean Corpuscular Volume 98.8 fL (80.0-100.0) Mean Corpuscular Hemoglobin 33.6 pg (28.0-32.0) Mean Corpuscular Hemoglobin Concent 34.0 g/dL (32.0-36.0) Red Cell Distribution Width 13.7 % (11.8-14.3) Platelet Count 182 10^3/uL (140-450) Mean Platelet Volume 7.1 fL (6.9-10.8) Neutrophils (%) (Auto) 76.1 % (37.0-80.0) Lymphocytes (%) (Auto) 12.6 % (10.0-50.0) Monocytes (%) (Auto) 9.7 % (0.0-12.0) Eosinophils (%) (Auto) 1.2 % (0.0-7.0) Basophils (%) (Auto) 0.4 % (0.0-2.0) Neutrophils # (Auto) 4.3 10 ^3/uL (1.6-8.6) Lymphocytes # (Auto) 0.7 10 ^3/uL (0.4-5.4) Monocytes # (Auto) 0.6 10 ^3/uL (0-1.3) Eosinophils # (Auto) 0.1 10 ^3/uL (0-0.8) Basophils # (Auto) 0 10 ^3/uL (0-0.2) Nucleated Red Blood Cells 0.0 % Sodium Level 134 mmol/L (136-145) Potassium Level 3.6 mmol/L (3.5-5.1) Chloride Level 103 mmol/L (98-107) Carbon Dioxide Level 25 mmol/L (20-31) Anion Gap 6 (5-15) Blood Urea Nitrogen 9 mg/dL (9-23) Creatinine 1.11 mg/dL (0.700-1.30) Glomerular Filtration Rate Calc 73 mL/min (>90) BUN/Creatinine Ratio 8.1 (10.0-20.0) Serum Glucose 111 mg/dL (74-106) Calcium Level 7.9 mg/dL (8.7-10.4) Troponin I High Sensitivity 7 ng/L (</=54) POC Glucose 124 mg/dl (70-106) Other Laboratory Tests 03/03/25 09:30 Brief Hx & Hospital Course: 69-year-old male with a known history of hypertension, dyslipidemia, previous history of CVA without any residual deficit, 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 Patient was eventually admitted, closely monitored on telemetry, cardiology was consulted. Patient's orthostatic vitals are negative. Patient was likely syncopized secondary to vasovagal episode. Patient was seen by Cardiology recommended to follow up with them outpatient for Holter monitoring. Patient is being discharged under stable condition. 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 Syncope rule out cardiac arrhythmia 2. Hypertension 3. Dyslipidemia 4. History of CVA without any neurological deficit 5. 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 -outpatient Holter/event monitoring upon discharge. 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 Medications: Resume home medications. Continued Medications: Amlodipine Besylate (Amlodipine Besylate) 5 Mg Tab 1 TAB PO DAILY for 90 Days, #90 Aspirin (Aspir-81) 81 Mg Tab 1 TAB PO DAILY for 90 Days, #90 Atorvastatin Calcium (Atorvastatin Calcium) 40 Mg Tab 1 TAB PO QPM for 100 Days, #100 Lisinopril (Lisinopril) 20 Mg Tab 1 TAB PO BID for 90 Days, #180 Primidone (Mysoline Tablet) 50 Mg Tb 1 TAB PO BID for 90 Days, #180 Scheduled Amlodipine Besylate (Amlodipine Besylate), 1 TAB PO DAILY, (Reported) Aspirin (Aspir-81), 1 TAB PO DAILY, (Reported) Atorvastatin Calcium (Atorvastatin Calcium), 1 TAB PO QPM, (Reported) Lisinopril (Lisinopril), 1 TAB PO BID, (Reported) Primidone (Mysoline Tablet), 1 TAB PO BID, (Reported) Discharge Statement: "Patient was advised to return to the ER or call 911 if any headaches, dizziness, shortness of breath, chest pain, abdominal pain, bleeding, fevers, or worsening of medical condition. Patient was counseled about treatment plan, medications, possible side effects, patientverbalized understanding. All questions were answered to the best of my ability. 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 Syncope rule out cardiac arrhythmia 2. Hypertension 3. Dyslipidemia 4. History of CVA without any neurological deficit 5. 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 -outpatient Holter/event monitoring upon discharge. Date of Service: Mar 05, 2025 Billing Provider: LEONIDES AGUILAR MD Common Visit Codes: NOT BILLABLE LEONIDES AGUILAR MD Mar 05, 2025 14:05
--- NOTE | 2025-03-05 23:25 | DVHINCON2 ---
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 he patient reports he was having a bowel movement and upon standing up from the toilet he experienced a syncopal event. Denies unilateral weakness, head/oral trauma, urinary/fecal incontinence, or seizure-like activity. During hospital stay the patient had not developed any further episodes of syncope neither dizziness, visual disturbances, headache, chest pain, SOB, palpitations, or any other symptoms. He underwent a 12 lead electrocardiogram revealing a sinus rhythm with an associated first-degree atrioventricular block. Baseline troponin level is negative. CT head is WNL. Patient was admitted to the hospital. I am asked to consult on this patient. Past Medical History Past medical history reviewed. No other significant than mentioned above. Past Surgical History Cholecystectomy Family History: Cancer G8 MOTHER Grandmother Uncle (Prostate ) Allergies: Coded Allergies: NO KNOWN ALLERGIES (Unverified , 04/23/15) Home Meds Reported Medications Lisinopril (Lisinopril) 20 Mg Tab, 1 TAB PO BID for 90 Days, #180 03/04/25 Primidone (MYSOLINE TABLET) 50 Mg Tb, 1 TAB PO BID for 90 Days, #180 03/04/25 Amlodipine Besylate (Amlodipine Besylate) 5 Mg Tab, 1 TAB PO DAILY for 90 Days, #90 09/28/15 Atorvastatin Calcium (ATORVASTATIN CALCIUM) 40 Mg Tab, 1 TAB PO QPM for 100 Days, #100 09/28/15 Aspirin (Aspir-81) 81 Mg Tab, 1 TAB PO DAILY for 90 Days, #90 09/28/15 Current Medications Current Medications Medications (Trade) Dose Ordered Sig/Camilo Route PRN Reason Start Time Stop Time Status Last Admin Nicotine (Nicoderm 14MG/ 24HR) 1 patch DAILY TD 03/05/25 10:00 03/05/25 09:13 Lisinopril (Zestril Tablet) 20 mg BID PO 03/04/25 22:00 03/05/25 09:15 Amlodipine Besylate (Norvasc Tablet) 5 mg DAILY PO 03/05/25 10:00 03/05/25 09:17 Aspirin 81 mg DAILY PO 03/05/25 10:00 03/05/25 09:13 Atorvastatin Calcium (Lipitor) 40 mg HS PO 03/04/25 22:00 03/04/25 22:29 Primidone (Mysoline Tablet) 50 mg BID PO 03/04/25 22:00 03/05/25 09:15 Review of Systems Constitutional: No symptom reported Ears, Nose, & Throat: No symptom reported Eyes: No symptom reported Neurological: Syncopal event Pulmonary/Respiratory: No symptom reported Cardiovascular: No symptom reported Gastrointestinal: No symptom reported Genitourinary: No symptom reported Musculoskeletal: No symptom reported Skin: No symptom reported Psychiatric: No symptom reported Endocrine: No symptom reported Hemotologic/Lymphatic: No symptom reported Vital Signs Vital Signs Date Time Temp Pulse Resp B/P (MAP) Pulse Ox O2 Delivery O2 Flow Rate FiO2 03/05/25 09:17 132/85 03/05/25 09:00 97.8 70 17 98 97.8 03/05/25 08:05 Room Air* 0 21 Physical Exam GENERAL: Alert and oriented x 3. No acute distress. EYES: PERRL, EOMI. Anicteric. HENT: Moist mucous membranes. LUNGS: Clear to auscultation bilaterally. CARDIOVASCULAR: Regular rate and rhythm. ABDOMEN: Soft, nontender and nondistended. EXTREMITIES: No edema. NEUROLOGIC: No focal neurological deficits. SKIN: Warm, dry. Labs/Diagnostic Data Labs Test 03/03/25 16:07 03/03/25 09:30 03/03/25 09:05 Range/Units Urine Color Yellow Yellow Urine Clarity Clear Clear Urine pH 6.0 5.0-9.0 Urine Specific [place] 1.013 1.001-1.035 Urine Protein Trace H Negative Urine Ketones Negative Negative Urine Blood Negative Negative /uL Urine Nitrite Negative Negative Urine Bilirubin Negative Negative Urine Urobilinogen Normal Negative mg/dL Urine Leukocyte Esterase Negative Negative /uL Urine RBC 2 0 - 3 /hpf Urine Microscopic WBC 1 0-3 /HPF Urine Squamous Epithelial Cells None seen <5 /hpf Urine Bacteria None seen None Seen /hpf Urine Glucose Normal Normal mg/dL White Blood Count 5.7 4.4-10.8 10^3/uL Red Blood Count 3.90 L 4.5-5.90 10^6/uL Hemoglobin 13.1 L 13.5-17.5 g/dL Hematocrit 38.5 L 41.0-53.0 % Mean Corpuscular Volume 98.8 80.0-100.0 fL Mean Corpuscular Hemoglobin 33.6 H 28.0-32.0 pg Mean Corpuscular Hemoglobin Concent 34.0 32.0-36.0 g/dL Red Cell Distribution Width 13.7 11.8-14.3 % Platelet Count 182 140-450 10^3/uL Mean Platelet Volume 7.1 6.9-10.8 fL Neutrophils (%) (Auto) 76.1 37.0-80.0 % Lymphocytes (%) (Auto) 12.6 10.0-50.0 % Monocytes (%) (Auto) 9.7 0.0-12.0 % Eosinophils (%) (Auto) 1.2 0.0-7.0 % Basophils (%) (Auto) 0.4 0.0-2.0 % Neutrophils # (Auto) 4.3 1.6-8.6 10 ^3/uL Lymphocytes # (Auto) 0.7 0.4-5.4 10 ^3/uL Monocytes # (Auto) 0.6 0-1.3 10 ^3/uL Eosinophils # (Auto) 0.1 0-0.8 10 ^3/uL Basophils # (Auto) 0 0-0.2 10 ^3/uL Nucleated Red Blood Cells 0.0 % Sodium Level 134 L 136-145 mmol/L Potassium Level 3.6 3.5-5.1 mmol/L Chloride Level 103 98-107 mmol/L Carbon Dioxide Level 25 20-31 mmol/L Anion Gap 6 5-15 Blood Urea Nitrogen 9 9-23 mg/dL Creatinine 1.11 0.700-1.30 mg/dL Glomerular Filtration Rate Calc 73 >90 mL/min BUN/Creatinine Ratio 8.1 L 10.0-20.0 Serum Glucose 111 H 74-106 mg/dL Calcium Level 7.9 L 8.7-10.4 mg/dL Troponin I High Sensitivity 7 </=54 ng/L POC Glucose 124 H 70-106 mg/dl Microbiology Date/Time Source Procedure Growth Status 03/03/25 17:31 Nose MRSA Screen - Final Complete Assessment Syncope and collapse, likely vasovagal event. Rule out cardiac arrhythmias. Left ICA stenosis, moderate degree. Hypertension. Dyslipidemia. History of CVA. History of lymphatic CA. Plan/Recommendation I agree with your ongoing assessment and care of plan. Patient has been seen by Georgia Jurado NP on my behalf, her and I discussed the plan with the patient. Transthoracic echocardiogram revealed LVEF 60% with normal RV function and no severe valve abnormalities noted. Twelve lead electrocardiogram revealed a sinus rhythm with a associated first- degree atrioventricular block. Bilateral carotid duplex revealed approximately 50-69% stenosis of the proximal left ICA and no hemodynamically significant stenosis of the right carotid system. Head CT is negative for acute process. Highly suspected for vasovagal event. The patient can benefit from an outpatient event monitor to rule cardiac arrhythmias, nevertheless not suspected at this time. Continue single-antiplatelet therapy and lipid lowering agent given moderate stenosis of the left ICA. Follow-up with Cardiology within 1-2 weeks post-discharge. Consider neurology consultation given history of CVA. There is no further cardiac work-up indicated at this time. Additional plan as per the hospital course. Plan discussed with: Patient NYHA Physical activity limitations: NA Date of Service: Mar 05, 2025 Billing Provider: LISA BASILIO MD Cardiology Common Codes: 37843-OAABMOO INP/OBS CARE (High) Cardiology Consultation Codes: 94498-TAAPNYCIX CONSULT <45MIN LISA BASILIO MD Mar 05, 2025 13:59
== END 2025-03-05 17:36 | disposition home or self-care (01) | DRG 312 ==
LOC: EDBD 08:49 → ER 08:52 → OVERFLOW 12:57 → TELE-WESTW 16:23
PROVIDERS: ADMIT Student in an Organized Health Care Education/Training Program; ATTEND Internal Medicine
DX: R55 Syncope and collapse (principal); I65.22 Occlusion and stenosis of left carotid artery; I49.9 Cardiac arrhythmia, unspecified; I10 Essential (primary) hypertension; E78.5 Hyperlipidemia, unspecified; K80.20 Calculus of gallbladder without cholecystitis without obstruction; F17.210 Nicotine dependence, cigarettes, uncomplicated; I44.0 Atrioventricular block, first degree; I49.3 Ventricular premature depolarization; Z85.89 Personal history of malignant neoplasm of other organs and systems; Z86.73 Personal history of transient ischemic attack (TIA), and cerebral infarction without residual deficits; Z92.21 Personal history of antineoplastic chemotherapy; Z92.3 Personal history of irradiation; Z90.49 Acquired absence of other specified parts of digestive tract
CPT/HCPCS: 36415; 70450; 80048; 81001; 82962; 84484; 85025; 87081; 93005; 93306; 93886; 96360; 97163; G0378